=== PATIENT | female | born 1935 ===

== ENCOUNTER 2022-03-07 19:49 | Emergency (ER) | payer MEDICARE, BC ==
[~2022-03-07] VITALS: Ht 157.5 cm; Wt 48.5 kg
[~2022-03-07 19:49] MED LIST: ALOGLIPTIN25 MG PO; AMOX500 PO; BISA5EC PO; CHOL10002 PO; CIPR500 PO; CONESTTC PV; CYCL10 PO; ESOM20 PO; FISH1000 PO; FLUC100 PO; GLYMET1.25 PO; GLYMET5 PO; HYOS.125 PO; IBUP800; IRON150C PO; LOSA50 PO; LOSARTAN POTAS100 M1 PO; LOSARTAN-HCTZ1 EACH PO; LOSHYD PO; METF500 PO; METO25 PO; MIRALAX17 GM PO; NAPR500 PO; OMEP20ER PO; ONDA4ODT MM; ONGLYZA5 MG PO; OXYC5 PO; PIOG30 PO; PIOG45 PO; POLY500 PO; PRAV20 PO; SAXA2.5T PO; TOCO1000 PO; Vistaril25 MG PO; [UNRECOGNIZED DRUG - OTHER]; [UNRECOGNIZED DRUG - OTHER]
== END 2022-03-07 20:30 | disposition home or self-care (01) ==
LOC: ER 19:49
DX: F41.9 Anxiety disorder, unspecified (principal); I10 Essential (primary) hypertension; E11.9 Type 2 diabetes mellitus without complications; Z88.5 Allergy status to narcotic agent; Z79.899 Other long term (current) drug therapy
CPT/HCPCS: 99283

== ENCOUNTER 2023-05-02 09:14 | Inpatient (IN) | payer MEDICARE, BC ==
[~2023-05-02] VITALS: Ht 154.9 cm; Wt 60.7 kg
[2023-05-02] VITALS (105 sets, daily range): BP systolic 71–137; BP diastolic 34–98
[2023-05-02 10:03] LABS: International Normalized Ratio 1.09; Prothrombin Time Results 11.4 Sec (9.7-11.5)
[2023-05-02 10:07] LABS: BASOPHILS ABSOLUTE AUTO 0.01 K/mm3 (0.00-0.23); BASOPHILS PERCENT AUTO 0 % (0-2); EOSINOPHILS ABSOLUTE AUTO 0.03 K/mm3 (0.00-0.68); EOSINOPHILS PERCENT AUTO 1 % (0-6); IMMATURE GRAN ABSOLUTE AUTO 0.02 K/mm3 (0.00-0.10); IMMATURE GRAN PERCENT AUTO 0 % (0-1); LYMPHOCYTES ABSOLUTE AUTO 1.08 K/mm3 (0.84-5.20); LYMPHOCYTES PERCENT AUTO 24 % (21-46); MONOCYTES PERCENT AUTO 4 % (4-13); Mean Corpuscular HGB 30.8 pg (26.0-34.0); Mean Corpuscular HGB Conc 32.1 g/dL (31.5-36.5); Mean Corpuscular Volume 96 fL (80-100); Mean Platelet Volume 11.9 fL (9.1-12.4); NEUTROPHILS ABSOLUTE AUTO 3.16 K/mm3 (1.96-9.15); NEUTROPHILS PERCENT AUTO 70 % (41-73); RDW Coefficient Variation 12.6 % (11.7-14.2); RDW Standard Deviation 43.8 fL (35.1-46.3); Red Blood Cell Count 1.46 M/mm3 (3.80-5.20)
[2023-05-02 10:11] LABS: Alanine Aminotransfer (ALT/SGP 6 U/L (12-78); Albumin, Blood 0.9 g/dL (3.4-5.0); Alk Phos 18 U/L (50-136); Anion Gap 8 mmol/L (6-16); Aspartate Aminotrans (AST/SGOT 9 U/L (12-37); Bilirubin, Total 0.2 mg/dL (0.1-1.0); Blood Urea Nitrogen 6 mg/dL (8-24); Bun/Creatinine Ratio 22.1 (12.0-20.0); CO2, Blood 10 mmol/L (21-32); Chloride, Blood 138 mmol/L (98-108); Creatinine, Blood 0.27 mg/dL (0.40-1.00); Globulin, Blood 0.9 g/dL (2.2-4.0); Glomerular Filtration Rate 107 (60-); Glucose, Blood 121 mg/dL (70-99); Sodium, Blood 156 mmol/L (136-145); Total Protein, Blood 1.8 g/dL (6.4-8.2)
[2023-05-02 10:13] LABS: Potassium, Blood 1.3 mmol/L (3.5-5.5)
[2023-05-02 10:14] LABS: Calcium, Blood <5.0 mg/dL (8.5-10.1)
[2023-05-02 10:35] LABS: Hemoglobin 4.5 g/dL (11.5-16.0)
[2023-05-02 10:37] LABS: Platelet Count 47 K/mm3 (150-400)
[2023-05-02 14:21] LABS: Source, Urine Foley catheter
[2023-05-02 14:29] LABS: Appearance, Urine Clear (Clear); Bilirubin, Urine Neg (Neg); Blood, Urine 1+ (Neg); Color, Urine Yellow (P-Yellow); Glucose Qualitative, Urine 4+ (Neg); Ketones, Urine Neg (Neg); Leukocyte Esterase, Urine Neg (Neg); Nitrite, Urine Neg (Neg); Protein, Urine 3+ (Neg); Urobilinogen, Urine NORM (Normal)
[2023-05-02 14:41] LABS: Bacteria Many /hpf; Squamous Epithelial Cells Few /hpf (Few); Yeast/Fungi Urine Rare /hpf
[2023-05-02 14:46] LABS: IMMATURE RETIC FRACTION 12.1 % (2.3-16.0); RETIC HGB EQUIVALENT 34.4 pg (28.20-36.60); RETICULOCYTE ABSOLUTE 0.0492 M/mm3 (0.0200-0.1100); RETICULOCYTE COUNT PERCENT 1.28 % (0.50-2.50)
[2023-05-02 15:13] LABS: Bun/Creatinine Ratio 28.8 (12.0-20.0); Creatinine, Blood 0.7 mg/dL (0.40-1.00)
[2023-05-02 15:15] LABS: Potassium, Blood 6.5 mmol/L (3.5-5.5)
[2023-05-02 15:20] LABS: Calcium, Blood 10.6 mg/dL (8.5-10.1)
[2023-05-02 15:46] LABS: Percent Saturation 31.1 % (15.0-50.0)
[2023-05-02 16:42] LABS: BASOPHILS ABSOLUTE AUTO 0.02 K/mm3 (0.00-0.23); BASOPHILS PERCENT AUTO 0 % (0-2); EOSINOPHILS PERCENT AUTO 0 % (0-6); Hematocrit 33.4 % (33.0-51.0); Hemoglobin 10.6 g/dL (11.5-16.0); IMMATURE GRAN ABSOLUTE AUTO 0.05 K/mm3 (0.00-0.10); IMMATURE GRAN PERCENT AUTO 1 % (0-1); LYMPHOCYTES ABSOLUTE AUTO 0.95 K/mm3 (0.84-5.20); LYMPHOCYTES PERCENT AUTO 10 % (21-46); MONOCYTES ABSOLUTE AUTO 0.66 K/mm3 (0.16-1.47); MONOCYTES PERCENT AUTO 7 % (4-13); Mean Corpuscular HGB 30.5 pg (26.0-34.0); Mean Corpuscular HGB Conc 31.7 g/dL (31.5-36.5); Mean Corpuscular Volume 96 fL (80-100); Mean Platelet Volume 11.9 fL (9.1-12.4); NEUTROPHILS PERCENT AUTO 83 % (41-73); Platelet Count 113 K/mm3 (150-400); RDW Coefficient Variation 12.8 % (11.7-14.2); Red Blood Cell Count 3.47 M/mm3 (3.80-5.20); White Blood Cell Count 9.78 K/mm3 (4.00-11.30)
[2023-05-02 17:01] LABS: Bun/Creatinine Ratio 33.4 (12.0-20.0); Creatinine, Blood 0.54 mg/dL (0.40-1.00); Potassium, Blood 5.5 mmol/L (3.5-5.5)
[2023-05-02 17:02] LABS: Calcium, Blood 8.2 mg/dL (8.5-10.1)
[2023-05-02 19:16] LABS: BASOPHILS ABSOLUTE AUTO 0.01 K/mm3 (0.00-0.23); BASOPHILS PERCENT AUTO 0 % (0-2); EOSINOPHILS PERCENT AUTO 0 % (0-6); Hematocrit 37.2 % (33.0-51.0); Hemoglobin 11.7 g/dL (11.5-16.0); IMMATURE GRAN ABSOLUTE AUTO 0.04 K/mm3 (0.00-0.10); IMMATURE GRAN PERCENT AUTO 0 % (0-1); LYMPHOCYTES PERCENT AUTO 8 % (21-46); MONOCYTES ABSOLUTE AUTO 0.58 K/mm3 (0.16-1.47); MONOCYTES PERCENT AUTO 6 % (4-13); Mean Corpuscular HGB 31.1 pg (26.0-34.0); Mean Corpuscular HGB Conc 31.5 g/dL (31.5-36.5); Mean Corpuscular Volume 99 fL (80-100); Mean Platelet Volume 12.1 fL (9.1-12.4); NEUTROPHILS ABSOLUTE AUTO 9.18 K/mm3 (1.96-9.15); NEUTROPHILS PERCENT AUTO 87 % (41-73); Platelet Count 110 K/mm3 (150-400); RDW Coefficient Variation 13.1 % (11.7-14.2); RDW Standard Deviation 46.5 fL (35.1-46.3); Red Blood Cell Count 3.76 M/mm3 (3.80-5.20); White Blood Cell Count 10.61 K/mm3 (4.00-11.30)
--- NOTE | 2023-05-02 19:43 | NUR ---
ASSUMPTION OF CARE/ SUMMARY PT ARRIVED TO ICU FROM BED WORKER VIA ICU BED. PT A&OX3, FOLLOWING COMMANDS BUT EXTREMELY WEAK. UPON ARRIVAL PT ON NON-REBREATHER, QUICKLY TRANSITIONED OVER TO BIPAP. O2 SATS IN THE MID 90'S. TITRATED OFF BIPAP TO NC @ 6LPM, CURRENTLY @ 2-3LPM WHILE SLEEPING WITH O2 SATS >90%. PT EXTERNALLY PACED VIA RFV @ 60BPM C OUTPUT @ 5 MA, GOOD CAPTURE. PT KEPT IN SUPINE POSITION, SMALL SIDE TO SIDE TURNS. SMALL AMNT OF OOZING FROM PACER SITE AND L GROIN CL. UNABLE TO OBTAIN PRECISE TEMP, TEMPORAL AND ORAL READINGS OF 89 F. TEMP PROBE DUMONT ESTABLISHED WITH CORE TEMP IN LOW 90'S, BEAR HUGGER IN PLACE c CURRENT TEMP OF 95/96.0F. PT ON LEVOPHED @ 7MCG'S UPON ARRIVAL, TITRATED DOWN TO 5MCG'S c MAP >60. 1-UNIT OF PRBC ADMINISTERED FOR CRITCALLY LOW HGB.
[2023-05-02 20:01] LABS: Albumin, Blood 2.3 g/dL (3.4-5.0); Bilirubin, Total 0.5 mg/dL (0.1-1.0); Bun/Creatinine Ratio 31.3 (12.0-20.0); Calcium, Blood 8.9 mg/dL (8.5-10.1); Creatinine, Blood 0.7 mg/dL (0.40-1.00); Globulin, Blood 2.3 g/dL (2.2-4.0); Potassium, Blood 6.5 mmol/L (3.5-5.5)
[2023-05-02 20:02] LABS: Total Protein, Blood 4.6 g/dL (6.4-8.2)
[2023-05-02 22:26] LABS: Bun/Creatinine Ratio 29.5 (12.0-20.0); Calcium, Blood 9.3 mg/dL (8.5-10.1); Creatinine, Blood 0.78 mg/dL (0.40-1.00); Potassium, Blood 6.2 mmol/L (3.5-5.5)
[2023-05-03] VITALS (92 sets, daily range): BP systolic 78–163; BP diastolic 39–138
--- NOTE | 2023-05-03 00:52 | NUR ---
ASSUMED CARE ASSUMED CARE AT 190. PT A/O X 4 AND FOLLOWING DIRECTIONS AT BEGINNING OF SHIFT. LEVOPHED GTT INFUSING. SEE FLOWSHEET FOR TITRATIONS. LR BOLUS INFUSING. TEMP PACER IN PLACE, . SITE SOFT, WITH NO HEMATOMA. MINIMAL BLEEDING NOTED. VSS. ON 4L NC. DENIES CHEST PAIN. C/O OF ABD PAIN AND THAT SHE HAS TO HAVE A BOWEL MOVEMENT. EDUCATED PT ON NOT BEING ABLE TO GET OUT OF BED, AND ASSISTED HER ONTO BEDPAN. DUMONT PATENT AND DRAINING TO GRAVITY. FAMILY AT BEDSIDE. [facility] [address] INTO [address] CORONEL. ORDERS RECEIVED.
[2023-05-03 05:35] LABS: BASOPHILS ABSOLUTE AUTO 0.02 K/mm3 (0.00-0.23); BASOPHILS PERCENT AUTO 0 % (0-2); EOSINOPHILS PERCENT AUTO 0 % (0-6); Hematocrit 38.3 % (33.0-51.0); IMMATURE GRAN ABSOLUTE AUTO 0.07 K/mm3 (0.00-0.10); IMMATURE GRAN PERCENT AUTO 0 % (0-1); LYMPHOCYTES ABSOLUTE AUTO 1.21 K/mm3 (0.84-5.20); LYMPHOCYTES PERCENT AUTO 8 % (21-46); MONOCYTES ABSOLUTE AUTO 1.06 K/mm3 (0.16-1.47); MONOCYTES PERCENT AUTO 7 % (4-13); Mean Corpuscular HGB 30.8 pg (26.0-34.0); Mean Corpuscular HGB Conc 33.9 g/dL (31.5-36.5); Mean Platelet Volume 12.7 fL (9.1-12.4); NEUTROPHILS ABSOLUTE AUTO 13.38 K/mm3 (1.96-9.15); NEUTROPHILS PERCENT AUTO 85 % (41-73); Platelet Count 128 K/mm3 (150-400); RDW Coefficient Variation 13.1 % (11.7-14.2); RDW Standard Deviation 42.6 fL (35.1-46.3); Red Blood Cell Count 4.22 M/mm3 (3.80-5.20); White Blood Cell Count 15.74 K/mm3 (4.00-11.30)
[2023-05-03 05:36] LABS: Mean Corpuscular Volume 91 fL (80-100)
[2023-05-03 06:03] LABS: Bun/Creatinine Ratio 26.2 (12.0-20.0); Calcium, Blood 9.2 mg/dL (8.5-10.1); Creatinine, Blood 1.07 mg/dL (0.40-1.00); Potassium, Blood 6.1 mmol/L (3.5-5.5)
--- NOTE | 2023-05-03 07:23 | NUR ---
SHIFT SUMMARY PT MORE CONFUSED THIS AM. ASKING "WHERE AM I", "GRAB THE PILLS FROM THE BOX" ECT. PT WILL ALSO START TALKING IN [place] MID CONVERSATION. PT FIGETING IN BED, PULLING OFF GOWN AND PULLING ON WIRES. EASY TO REORIENT. TEMP PACER IN PLACE. OCCASIONAL NON-CAPTURE NOTED. PT ASYMPTOMATIC. CL AND PACER SITE CONTINUE TO MINIMALLY OOZE. DRG CHANGED ON CL AND DRSG REINFORCED ON PACER SITE. LEVOPHED GTT, BICARB GTT AND HEPARIN GTT INFUSING. HEPARIN GTT STOPPED FOR ONE HOUR PER PHARMACY AND RESTARTED AT LOWER DOSE. SEE EMAR. VSS. DUMONT TEMP PROBE READ 38-98 DEGREES. TEMPORAL TEMPS TAKEN INSTEAD, TEMP STABLE. PT HAD MULTIPLE BM'S T/O SHIFT. DUMONT PATENT AND DRAINING TO GRAVITY. BEDSIDE REPORT GIVEN TO DAY RN.
--- NOTE | 2023-05-03 07:35 | NUR ---
ASSUMED CARE: REPORT RECEIVED FROM TRACY KAPADIA. ASSUMED CARE OF THIS PT AT APPROX 0700. ON ASSESSMENT, THE PT IS AWAKE, FIDGETING W/ HOSPITAL GOWN & REQUIRING FREQUENT REDIRECTION TO NOT SIT UP IN BED. SHE IS ORIENTED TO SELF, FOLLOWING DIRECTIONS & FAMILY. DISORIENTED TO , PLACE & DATE. LS DIM IN BASES, PT ON 6L NC W/ O2 SATS > 90%. MONITOR SHOWS 100% V-PACED RHYTHM W/ TV PACER IN PLACE TO RIGHT GROIN. TV PACER SETTINGS: 60/5/5. OCCASIONAL PREMATURE UNPACED BEATS NOTED. PACER NOTED TO BE 55 CM OUT, NOTED TO BE 65 CM OUT INITIALLY AFTER PLACEMENT. BEATS CONTINUE CAPTURING, WILL ADDRESS W/ ELECTRONIC SECURITY SPECIALIST THIS AM. LEVOPHED INFUSING AT 4 MCG/MIN FOR PERSISTANT HYPOTENSION, GOAL TO MAINTAIN MAP > 65. PT HAS NO GI COMPLAINTS CURRENTLY, NPO PER NURSING JUDGEMENT AFTER FAILED BEDSIDE SWALLOW EVAL NOTED W/ COUGHING ON FIRST SIP WATER. TEMP DUMONT PATENT/ DRAINING SCANT AMNTS DARK YELLOW URINE, REMAINS IN PLACE FOR CRITICAL CARE I&O NEEDS. PT HAVING FREQUENT SMALL BROWN BMs, REQUESTS BEDPAN APPROPRIATELY BUT OFTEN INCONTINENT PRIOR TO USING BEDPAN. SKIN CONDITION OVERALL FRAGILE, ECCHYMOTIC. DARK DISCOLOATION NOTED TO BLE; FEET & ANKLES. FEET ARE COLD TO TOUCH, PULSES OBTAINED VIA DOPPLER & ARE FAINT. BILATERAL GROIN SITES ARE SLOWLY OOZING SS DRAINAGE. SKIN CLEANSED & DRESSINGS REINFORCED W/ GAUZE. WILL CONTINUE TO MONITOR & UPDATE NEEDED.
--- NOTE | 2023-05-03 10:20 | NUR ---
DR CORONEL: PROVIDER AT BEDSIDE THIS AM TO EVAL PT. FAMILY IS ALSO AT BEDSIDE DURING THIS TIME & HE HAS PROVIDED THEM W/ AN UPDATE. THIS RN HAS DISCUSSED PT's COLD BLE, DECREASED UO & PERSISTANT HYPOTENSION W/ PROVIDER. HE BELIEVES THIS TO BE A CARDIAC/ PERFUSION ISSUE & HAS ORDERED FOR AN ECHO TO BE COMPLETED THIS AM. CONTINUE MAINTAINENCE IV FLUIDS ORDERED.
--- NOTE | 2023-05-03 10:20 | NUR ---
DR JACOBS: PROVIDER AT BEDSIDE TO EVAL PT THIS AM. CONCERN REGARDING COLD/ DISCOLORED BLE & DOPPLER PULSES IS DISCUSSED. HE STS THIS IS UNCHANGED SINCE HIS INITIAL CONSULTATION W/ THE PT YESTERDAY. HE HAS ADJUSTED PACER SETTINGS TO 50/5/5. IT IS NOTED THAT THE PT DOES HAVE SOME INTRINSIC BEATS, BUT THEY ARE INCONSISTENT & THE PACER IS TO REMAIN IN PLACE.
--- NOTE | 2023-05-03 11:04 | NUR ---
Met Family in the Hallway Visisted Pts. family in the hallway. Facilitated a short life review and verbalized my availablitity to both the Pt. and family. Family verbalized gratitude for the visit.
--- NOTE | 2023-05-03 11:30 | NUR ---
UPDATE: THIS RN HAS NOTIFIED DR CORONEL THAT THE PT IS HAVING PERSISTANT DESATURATIONS TO 83% DESPITE INCREASED INSPIRATORY PRESSURE ON BIPAP. ONCE AT BEDSIDE HE HAS ORDERED A STAT CXR FOR THIS PT TO BE COMPLETED. FIO2 INCREASED TO 80% AT THIS TIME WELL. HE BELIEVES THIS IS LIKELY A CARDIAC/ PERFUSION ISSUE, ECHO HAS BEEN ORDERED THIS AM & IS TO BE COMPLETED SOON.
[2023-05-03 14:10] LABS: Bun/Creatinine Ratio 21.6 (12.0-20.0); Calcium, Blood 8.8 mg/dL (8.5-10.1); Creatinine, Blood 1.48 mg/dL (0.40-1.00); Potassium, Blood 5.9 mmol/L (3.5-5.5)
--- NOTE | 2023-05-03 15:33 | NUR ---
DR CORONEL UPDATE: PROVIDER AT BEDSIDE TO PROVIDE AN UPDATE FOR THE PT's FAMILY REGARDING ECHO & RECENT LAB RESULTS. HE HAS DISCUSSED CODE STATUS & THE FAMILY IS IN AGREEANCE THAT THE PT SHOULD NOT BE INTUBATED. DR CORONEL WOULD LIKE TO GIVE LASIX TO SEE IF RENAL FUNCTION CAN BE IMPROVED. HE HAS PLACED ORDERS.
--- NOTE | 2023-05-03 16:00 | NUR ---
HEPARIN: ANTI-XA LAB VALUE REMAINS CRITICALLY HIGH DESPITE REDRAW VIA VENIPUNCTURE. PHARMACY STS TO PLACE HEPARIN DRIP ON STANDBY FOR TWO HOURS, AT WHICH TIME THEY WILL ORDER A REDRAW TO ENSURE THAT THE VALUE HAS DROPPED PRIOR TO RESUMING HEPARIN DRIP. THIS RN HAS PLACED THE HEPARIN DRIP ON STANDBY & DISCONNECTED FROM THE PT AT 1600. WILL REDRAW ANTI-XA AT 1800 PER ORDERS, PRIOR TO RESUMING DRIP.
--- NOTE | 2023-05-03 17:57 | NUR ---
SHIFT SUMMARY: SINCE PRIOR UPDATE, THE PT's MENTATION HAS CONTINUED TO IMPROVE. SHE IS CONVERSANT W/ HER FAMILY & NOW ABLE TO PASS A BEDSIDE SWALLOW EVAL. SHE KNOWS THAT SHE IS IN THE HOSPITAL & IS ASKING APPROPRIATE QUESTIONS REGARDING HER CARE, ALTHOUGH DOES REMAIN FORGETFUL AT TIMES. LS DIM IN BASES, PT CURRENTLY ON 10L HI-FLOW NC W/ O2 SATS > 92% ON AVG. MONITOR SHOWS SR W/ HR 60-70s, OCCASIONALLY V-PACED BEATS W/ TV PACER IN PLACE TO RIGHT GROIN, SETTINGS: 50/5/5. PT REMAINS HYPOTENSIVE W/ DOBUTAMINE NOW INFUSING AT 5 MCG/KG/MIN & LEVOPHED ON STANDBY. PULSES T/O HAVE GOTTEN STRONGER SINCE DOBUTAMINE STARTED & PEDAL PULSES NOW PALPABLE, POST-TIB PULSES NOW OBTAINED VIA DOPPLER. PT ABLE TO TOLERATE SMALL AMNTS PO INTAKE NOW THAT SHE IS MORE ALERT, NO GI COMPLAINTS AT THIS TIME. NUMEROUS SMALL, BROWN, SOFT BMs THIS SHIFT. TEMP DUMONT PATENT/ DRAINING SCANT AMNTS DARK YELLOW-TEA COLORED URINE. LASIX GIVEN PER EMAR W/ OUTPUT INCREASED SLIGHTLY - SEE I&O. SKIN OVERALL FRAGILE, ECCHYMOTIC, INTACT. DISCOLORATION TO BLE HAS IMPROVED THIS EVENING. BILAT GROIN SITE W/ CONTINUED SMALL AMNT SS OOZING NOTED UNDER DRESSINGS. SURROUNDING SKIN HAS BEEN CLEANSED & FRESH GAUZE REINFORCED. WILL CONTINUE TO MONITOR & REPORT OFF TO ONCOMING RN.
[2023-05-04] VITALS (93 sets, daily range): BP systolic 91–145; BP diastolic 47–69
[2023-05-04 04:42] LABS: Hematocrit 33.1 % (33.0-51.0); Hemoglobin 11.6 g/dL (11.5-16.0); Mean Corpuscular HGB 30.9 pg (26.0-34.0); Mean Corpuscular Volume 88 fL (80-100); Mean Platelet Volume 12.7 fL (9.1-12.4); Platelet Count 81 K/mm3 (150-400); RDW Coefficient Variation 13.2 % (11.7-14.2); RDW Standard Deviation 42.5 fL (35.1-46.3); Red Blood Cell Count 3.76 M/mm3 (3.80-5.20)
[2023-05-04 05:13] LABS: Magnesium, Blood 1.5 mg/dL (1.6-2.4)
[2023-05-04 05:17] LABS: Albumin, Blood 2.4 g/dL (3.4-5.0); Bilirubin, Total 0.3 mg/dL (0.1-1.0); Bun/Creatinine Ratio 29.7 (12.0-20.0); Creatinine, Blood 1.18 mg/dL (0.40-1.00); Globulin, Blood 2.5 g/dL (2.2-4.0); Phosphorus, Blood 3.1 mg/dL (2.5-4.9); Potassium, Blood 4.4 mmol/L (3.5-5.5); Total Protein, Blood 4.9 g/dL (6.4-8.2)
--- NOTE | 2023-05-04 05:41 | NUR ---
SHIFT SUMMARY: Assumed care at 1900, received bedside report from Jacinta MOLINA. Right femoral transvenous pacer in place, old drainage on dressing but dry and intact. Pt laying with HOB less than 30 degrees and leg kept straight. Pt kept on bedrest with HOB flat, leg straight overnight. No changes in site condition overnight. Pacer settings are backup rate of 50, sensitivity of 5MV and output of 5mA, unchanged from previous shift. Heparin turned down to 8units/kg/hr at 0300 per order. Dobutamine still running at 5 and bicarb still running. Oxygen weaned down to 3L NC. BIPAP was not needed overnight. No respiratory distress, lung sounds clear/dim. Vitals stable. In NSR with occasional paced beats and PVCs. Urine output about the same as reported by day shift. Had 2 BMs. Slept for most of the night. Denies pain.
--- NOTE | 2023-05-04 07:00 | NUR ---
ASSUMPTION OF CARE PT RECEIVING DOBUTAMINE 5MCG/KG/MIN. CABLE INSTALLER REPAIRER HELPER ROUNDED THIS AM AND DISCONTINUED HEPARIN GTT WITH PLAN TO REMOVE TV PACER TODAY. TV PACER TO R GROIN WITH SETTINGS 50/5/5. DRESSING HAS SMALL AMOUNT OF DRIED BLOOD. HR 50S-60S. SBP 120S. DUMONT PATENT AND DRAINING TO GRAVITY. SEE SHIFT ASSESSMENT.
--- NOTE | 2023-05-04 10:30 | NUR ---
UPDATE ATTEMPTED TO TITRATE DOBUTAMINE OFF. SBP DECREASED TO 90S. HR 50S-60S. SPO2 DECREASING TO 70S-80S. OXYGEN TITRATED UP, RT AT BEDSIDE. PLACED PT BACK ON BIPAP. DOBUTAMINE RESTARTED AT 5MCG/KG/MIN.
--- NOTE | 2023-05-04 18:27 | NUR ---
SHIFT SUMMARY PT RECEIVING DOBUTAMINE 5MCG/KG/MIN. NEURO: ALERT AND ORIENTED WITH PLEASANT AFFECT. ASSISTS WITH CARE AND REPOSITIONING. PT EDUCATED REGARDING LYING FLAT AND KEEPING LOWER EXTREMITIES STRAIGHT. RESP: SHE IS ON 13L HI-FLOW. SHE WAS ON BIPAP FOR APPROX 2HRS THIS AFTERNOON. BIPAP REMAINS AT BEDSIDE. CARDIAC: SHE IS RECEIVING DOBUTAMINE. TV PACEMAKER REMOVED FROM R GROIN BY DR JACOBS. DRESSING C/D/I. NSR ON MONITOR WITH RATE 60S-70S. SBP 120S. STRONG RADIAL, DOPPLER PULSES. GI: PT TOLERATING ADA DIET. DAUGHTER HAS ASSISTED WITH MEALS. BOWEL TONES ACTIVE, ABDOMEN SOFT. : DUMONT PATENT AND DRAINING YELLOW URINE TO GRAVITY. 550ML OUTPUT. SKIN: DISCOLORED BLE. BILAT GROIN SITE DRESSINGS C/D/I. FAMILY AT BEDSIDE FOR MOST OF DAY AND UPDATED ON PLAN OF CARE.
[2023-05-05] VITALS (29 sets, daily range): BP systolic 109–140; BP diastolic 45–87
[2023-05-05 04:09] LABS: Hematocrit 35.5 % (33.0-51.0); Hemoglobin 11.9 g/dL (11.5-16.0); Mean Corpuscular HGB 30.4 pg (26.0-34.0); Mean Corpuscular HGB Conc 33.5 g/dL (31.5-36.5); Mean Corpuscular Volume 91 fL (80-100); Mean Platelet Volume 12.4 fL (9.1-12.4); Platelet Count 74 K/mm3 (150-400); RDW Coefficient Variation 13.2 % (11.7-14.2); RDW Standard Deviation 43.8 fL (35.1-46.3); Red Blood Cell Count 3.91 M/mm3 (3.80-5.20); White Blood Cell Count 9.88 K/mm3 (4.00-11.30)
[2023-05-05 05:00] LABS: Magnesium, Blood 1.6 mg/dL (1.6-2.4)
[2023-05-05 05:02] LABS: Bun/Creatinine Ratio 39.5 (12.0-20.0); Calcium, Blood 8.1 mg/dL (8.5-10.1); Creatinine, Blood 0.84 mg/dL (0.40-1.00); Phosphorus, Blood 2.6 mg/dL (2.5-4.9); Potassium, Blood 3.5 mmol/L (3.5-5.5)
--- NOTE | 2023-05-05 05:06 | NUR ---
SHIFT SUMMARY: Pt slept for most of the night, denied pain/ discomfort. Dobutamine remains at 5. She was on 9L humidified nasal cannula for most of the night, but at around 0400 she started to desat to 88% with increased work of breathing. Lungs sound clear, diminished in the bases, no cough. Discussed with RT, he recommended turning her oyxgen up to 15L. This did not improve her sats significantly, so RT put her on BIPAP. However, she did not tolerate the BIPAP, becoming anxious and tachypneic. High flow nasal cannula applied instead. Titrated up to 80% Fi02 and 40L. Sats now between 90-94%, work of breathing improved. She has been in sinus rhythm all night. First degree heart block noted on reassessment. Rates in the 60s-70s. Groin sites clean, dry, intact and soft. Urine output has been minimal- about 20ml/hr.
--- NOTE | 2023-05-05 07:00 | NUR ---
ASSUMPTION OF CARE PT RECEIVING DOBUTAMINE 5MCG/KG/MIN. SHE IS ON AIRVO 40L/80%. SHE IS ALERT AND ORIENTED WITH PLEASANT AFFECT. PARTICIPATES IN CONVERSATION AND ASSISTS WITH CARE. LUNGS ARE CLEAR, DIMINISHED IN BASES. 1ST DEGREE BLOCK IN MONITOR WITH RATE 60S-70S. SBP 120S. BOWEL TONES ACTIVE, ABDOMEN SOFT. DUMONT PATENT AND DRAINING TO GRAVITY. DAUGHTER AT BEDSIDE. SEE SHIFT ASSESSMENT.
[2023-05-05] MEDS ORDERED: [UNRECOGNIZED DRUG - CODE] PO (08:41)
[2023-05-05] MEDS ORDERED: VITAMIN D5000 UNIT PO (08:41)
--- NOTE | 2023-05-05 11:53 | NUR ---
Spiritual Care Visit. Pt. is awake in bed and welcomes my visit. Family members are present. Pt. is pleasant, and verbalizes that she is a Taoism, while family memebers present identified as Adventism. Facilitated a short life review and then prayed with Pt. and family. Both Pt. and family cerbalized gratitude for the spiritual care visit.
--- NOTE | 2023-05-05 14:36 | NUR ---
RING SILVER COLORED BAND REMOVED FROM LEFT HAND DUE TO SWELLING. RING GIVEN TO DAUGHTER ADDIE WITH PT'S PERMISSION.
--- NOTE | 2023-05-05 14:37 | NUR ---
UPDATE PT REMAINS ON AIRVO 50L/70%. SHE IS RECEIVING DOBUTAMINE 6MCG/KG/MIN. SHE REPORTS FEELING TIRED AND ANXIOUS AT TIMES. SHE DENIES SOB AND CHEST PAIN. FAMILY HAS BEEN AT BEDSIDE THROUGHOUT THE DAY. PT AND FAMILY UPDATED ON PLAN OF CARE.
--- NOTE | 2023-05-05 17:48 | NUR ---
SHIFT SUMMARY PT REMAINS ON DOBUTAMINE 6MCG/KG/MIN. SHE WAS ON AIRVO MOST OF THE DAY BUT THIS AFTERNOON SPO2 DECREASED TO 84-87%. PT SWITCHED TO BIPAP 10/16 WITH 90%. SHE IS OCCASIONALLY ANXIOUS BUT IS TOLERATING BIPAP MASK. SHE IS A&OX3, OVERALL DROWSY AND REPORTS FEELING "TIRED". SHE PARTICIPATES IN CONVERSATION AND ASSISTS WITH CARE. FIRST DEGREE BLOCK ON MONITOR WITH RATE 60S-70S. SBP 110S-130S. SHE HAS A DECREASED APPETITE BUT ATE SOME OF BREAKFAST AND LUNCH WITH ENSURE DRINKS. BOWEL TONES ACTIVE, ABDOMEN SOFT. BILAT GROIN SITES DRESSINGS C/D/I. TEMP DUMONT PATENT AND DRAINING TO GRAVITY WITH 420ML OUTPUT. FAMILY AT BEDSIDE THROUGHOUT THE DAY.
--- NOTE | 2023-05-05 17:56 | NUR ---
Met with multiple family members today while pt was resting with eyes closed. I had met several of them earlier this week, and wanted to check in with them. They state they have changed pt's code status to DNR as we previously discussed, and they are aware that if pt is unable to wean off of IV dobutamine, there are not further treatments available, and would at that time change to comfort care. Plan to meet with them again in the morning, along with pt. They thanked me for coming to see and check in with them.
--- NOTE | 2023-05-05 19:32 | NUR ---
ASSUMED CARE OF PT AT 1900. REPORT RECEIVED AT BEDSIDE. PT PRESENTS IN BED SLEEPING. WEARING BIPAP AT THIS TIME. FAMILY IS OUT OF ROOM AT THIS TIME, AND WILL RETURN AFTERWARDS. PT IN NO APPARENT DISTRESS AT THIS TIME. OXYGEN SATURATIONS 89-91 PERCENT WITH FIO2 90 PERCENT. WILL REVIEW CHART AND PLAN OF CARE FOR THIS PT.
[2023-05-06] VITALS (13 sets, daily range): BP systolic 112–144; BP diastolic 51–99
--- NOTE | 2023-05-06 02:23 | NUR ---
PT CONTINUES ON BIPAP WHEREAS SHE MAINTAINS 89-90 PERCENT SATURATION.
[2023-05-06 03:42] LABS: Hematocrit 34.6 % (33.0-51.0); Hemoglobin 11.6 g/dL (11.5-16.0); Mean Corpuscular HGB 30.7 pg (26.0-34.0); Mean Corpuscular HGB Conc 33.5 g/dL (31.5-36.5); Mean Corpuscular Volume 92 fL (80-100); Platelet Count 71 K/mm3 (150-400); RDW Coefficient Variation 13.1 % (11.7-14.2); RDW Standard Deviation 42.9 fL (35.1-46.3); Red Blood Cell Count 3.78 M/mm3 (3.80-5.20); White Blood Cell Count 9.68 K/mm3 (4.00-11.30)
[2023-05-06 04:09] LABS: Calcium, Blood 7.8 mg/dL (8.5-10.1); Creatinine, Blood 0.73 mg/dL (0.40-1.00); Magnesium, Blood 1.7 mg/dL (1.6-2.4); Mean Platelet Volume 13.1 fL (9.1-12.4); Potassium, Blood 3.4 mmol/L (3.5-5.5)
--- NOTE | 2023-05-06 05:52 | NUR ---
PT HAS TOLERATED Q 2 HOUR TURNS. DAUGHTER HAS ROOMED IN FOR THE NIGHT. VERY ATTENTIVE TO PT'S NEEDS. PT COMPLIANT WITH WEARING BIPAP MASK THIS NIGHT. DID ADMINISTER XANAX TO HELP WITH BIPAP TOLERANCE. MAINTAINS SATURATIONS 88-91 PERCENT. DOBUTAMINE CONTINUES AT 6MCG'S. WILL CONTINUE TO MONITOR PT, AND WILL REPORT OFF TO ONCOMING RN.
--- NOTE | 2023-05-06 08:00 | NUR ---
FAMILY EDUCATED RE: PATIENT IS NONVERBAL BUT IS ON OXYGEN VIA NC. FAMILY IS AT BEDSIDE. IGNITION SOURCES AND RISK OF INJURY WHILE OXYGEN IS IN USE WERE EDUCATED TO THE FAMILY. FAMILY AT BEDSIDE DENIES HAVING IGNITION SOURCES IN THEIR PERSONAL ITEMS. FAMILY AT BEDSIDE ALSO VERBALIZED UNDERSTANDING OF EDUCATION AND HAD NO FURTHER QUESTIONS AT THIS TIME.
--- NOTE | 2023-05-06 08:41 | NUR ---
Assumed care of pt at 0700. Report received from Willy MOLINA. SpO2 low 90s with V60 high flow heated NC with 60 LPM flow and 100% FiO2. Dobutamine at 6 mcg/kg/min. Pt has daughter at bedside. Pt reporting 2/10 pain and points to L lateral chest. Pain sensitive to touch. Dr Camara notified by this RN. Provider ordered 50 mcg fentanyl. Gave pt 50 mcg of fentanyl. Pt reported that she felt like she was laying on something and the back of her left shoulder was hurting. Laid pt flat and rolled onto R side to fix wrinkled linens. Pt diaphortic and had some BM particles in perianal area. Washed back and cleaned bottom. Clean valente pad placed beneath patient. SpO2 dropped into 70s. Sat pt back up, placed nonrebreather over high flow heated nasal cannula and pt still did not recover. RT notified. Switched patient to BiPAP 12/8 and 100%. SpO2 remained high 60s, low 70s. At this time, pt was difficult to arouse. RR 20s with tidal volumes 350-450 mL and no leak. dishwashing machine operator called to bedside and Dr Erwin paged. RTs Brendan and Caitlyn in room to assess pt and pressures titrated up to 16/10. Minimal improvement noted. Dr Erwin at bedside to assess pt with POCUS and further titrated pressures up to 20/15. At this point, pt was much more alert and provider stated that narcan would not be beneficial for this patient. Despite improvement in pt's mentation, SpO2 remained in 70s. RR 30s and tidla volumes 450-500 mL. Pt's daughter called in more family to bedside. Ordered stat bilateral venous duplex to r/o DVT.
--- NOTE | 2023-05-06 09:46 | NUR ---
At 0915, this RN and Dr Erwin in room to update family on plan of care as preliminary venous duplex suggested low liklihood of DVT. Family was concerned that patient was having pain. This RN and Dr Erwin discussing risk/benefit of additional pain medicine and determining if patient would benefit from anxiety medication. While in room having this discussion, pt went into ventricular fibrillation. Discussed with family in room that patient is in an unstable heart rhythm and passing away. Discussed that pt is DNR. Family at bedside holding patient's hand and understanding as BiPAP was removed and dobutamine stopped. Dr Camara presented to bedside less than one minute after patient entering unstable rhyhthm. Pt having agonal breaths and some muscle movement. This RN and charge departed from bedside to give family privacy as pt was passing away. TOD pronounced at 0935 by Cam MOLINA and shala RN.
--- NOTE | 2023-05-06 09:52 | NUR ---
Upon receiving a request for spiritual care, I visited the family minutes after pt's demise. I provide brief grief support and then allow for needed alone time for family to have quiet space with the body. I continue to remain available.
--- NOTE | 2023-05-06 11:10 | NUR ---
Received call from Primary RN Jennifer reporting Pt . Arrived to Pt's room with family at bedside. Offered family condolences and emotional support. Answered questions and supportive visit. Family reports plan to let staff know once home has been decided. Family appears to be grieving appropriately and expresses appreciation. Palliative Care will remain available
== END 2023-05-06 14:00 | DRG 251 ==
LOC: ER 09:14 → ICUE 09:39
PROVIDERS: Emergency Medicine; Internal Medicine; Internal Medicine Critical Care Medicine; ADMIT Internal Medicine Interventional Cardiology
PROC: 02703ZZ Dilation of Coronary Artery, One Artery, Percutaneous Approach (ICD-10-PCS; principal; 2023-05-02)
PROC: 4A023N7 Measurement of Cardiac Sampling and Pressure, Left Heart, Percutaneous Approach (ICD-10-PCS; 2023-05-02)
PROC: B2111ZZ Fluoroscopy of Multiple Coronary Arteries using Low Osmolar Contrast (ICD-10-PCS; 2023-05-02)
PROC: B241ZZZ Ultrasonography of Multiple Coronary Arteries (ICD-10-PCS; 2023-05-02)
PROC: 30233N1 Transfusion of Nonautologous Red Blood Cells into Peripheral Vein, Percutaneous Approach (ICD-10-PCS; 2023-05-02)
PROC: 0T9B70Z Drainage of Bladder with Drainage Device, Via Natural or Artificial Opening (ICD-10-PCS; 2023-05-02)
PROC: 3E033XZ Introduction of Vasopressor into Peripheral Vein, Percutaneous Approach (ICD-10-PCS; 2023-05-02)
PROC: 06HY33Z Insertion of Infusion Device into Lower Vein, Percutaneous Approach (ICD-10-PCS; 2023-05-02)
PROC: 5A1223Z Performance of Cardiac Pacing, Continuous (ICD-10-PCS; 2023-05-02)
PROC: 5A09357 Assistance with Respiratory Ventilation, Less than 24 Consecutive Hours, Continuous Positive Airway Pressure (ICD-10-PCS; 2023-05-04)
PROC: 5A0935A Assistance with Respiratory Ventilation, Less than 24 Consecutive Hours, High Flow/Velocity Cannula (ICD-10-PCS; 2023-05-05)
DX: I21.19 ST elevation (STEMI) myocardial infarction involving other coronary artery of inferior wall (principal); E87.0 Hyperosmolality and hypernatremia; I44.2 Atrioventricular block, complete; E87.20 Acidosis, unspecified; N17.9 Acute kidney failure, unspecified; Z66 Do not resuscitate; I49.01 Ventricular fibrillation; R57.0 Cardiogenic shock; D64.9 Anemia, unspecified; D69.6 Thrombocytopenia, unspecified; E86.9 Volume depletion, unspecified; E87.6 Hypokalemia; J44.9 Chronic obstructive pulmonary disease, unspecified; I25.10 Atherosclerotic heart disease of native coronary artery without angina pectoris; I50.810 Right heart failure, unspecified; I11.0 Hypertensive heart disease with heart failure; R06.89 Other abnormalities of breathing; R23.0 Cyanosis; E11.9 Type 2 diabetes mellitus without complications; K21.9 Gastro-esophageal reflux disease without esophagitis; M19.90 Unspecified osteoarthritis, unspecified site; E78.5 Hyperlipidemia, unspecified; Z90.89 Acquired absence of other organs; Z98.890 Other specified postprocedural states; Z87.891 Personal history of nicotine dependence; Z88.5 Allergy status to narcotic agent; Z88.8 Allergy status to other drugs, medicaments and biological substances; Z79.84 Long term (current) use of oral hypoglycemic drugs; Z79.899 Other long term (current) drug therapy
CPT/HCPCS: 33210; 36011; 36415; 36430; 36556; 51702; 71045; 76937; 80048; 80053; 81001; 82607; 82728; 82746; 82947; 83540; 83550; 83735; 83880; 84100; 84145; 84484; 85025; 85027; 85045; 85520; 85610; 85730; 86850; 86870; 86900; 86901; 86902; 86905; 86922; 92941; 93005; 93010; 93454; 93970; 94660; 94762; 96374; 99152; 99153; 99291-25; A9270; C1725; C1751; C1760; C1769; C1887; C1894; C8929; C9113; J0461; J1250; J1644; J1815; J1940; J2250; J2405; J3010; J3475; J3480; J7030; J7040; J7050; J7060; J7120; P9016; Q9957; Q9967